=== PATIENT | male | born 1970 | race Caucasian/White ===

== ENCOUNTER → 2016-11-09 | Outpatient (CLI) | payer OTHER ==
--- NOTE | 2016-11-09 14:27 | PCVCIMAG ---
APPROVED REPORT Exam: Stress Echocardiogram Indication: CAD,ELEVATED COR CA+ SCORE, HTN,SHI Patient Location: Echo lab Stress Nurse: Essie Jean RN Status: routine Ht: 6 ft 1 in HR: 75 bpm BP: 150/100 mmHg Rhythm: NSR Medical History Medical History: HTN,ELEVATED COR CA+ SCORE Previous Cardiac Procedures: NONE Pretest Chest Pain Characteristics: No chest pain Exercise History: Physically active Procedure The patient underwent an Exercise Stress Test using the Jaun Protocol. Blood pressure, heart rate, and EKG were monitored. An Echocardiogram was performed by histopathology technician in four stages in quad fashion. At peak stress, four selected images were obtained and placed side by side with resting images for comparison. Stress Test Details Stress Test: Exercise stress testing was performed using a Jaun protocol. HR Resting HR: 75 bpmMax Heart Rate (APMHR): 174 bpm Max HR Achieved: 166 bpmTarget HR (85% APMHR): 147 bpm % of APMHR: 95 Recovery HR: 108 bpm HR response to stress: Normal HR response to stress BP Resting BP: 150/100 mmHg Max BP: 168/94 mmHg Recovery BP: 200/104 mmHg ECG Resting ECG: Sinus Rhythm Stress ECG: Sinus Rhythm ST Change: Non-ischemic Maximum ST Deviation: 1.0 mm Arrhythmia: Rare pvcs Recovery ECG: Sinus Rhythm Recovery ST Change: Non-ischemic Recovery ST Deviation: 0.35 mm Recovery Arrhythmia: None Clinical Reason for Termination: Maximal effort Stress Symptoms: none Exercise duration: 12 min 36 sec Highest Stage Achieved: Stage 5: 5.0 mph at 18% grade. Exercise capacity: 15.4 METs Overall Exercise Capacity for Age: Good Angina Score: None No complications. Stress ECG Conclusion The patient exercised according to the JAUN protocol for 10:36minutes, achieving a work level of Max. METS: 15.4. The resting heart rate of 75 bpm narciso to a maximal heart rate of 166 bpm. This value represents 95 % of the maximal, age-predicted heart rate. The resting blood pressure of 150/100 mmHg, narciso to a maximum blood pressure of 200/104 mmHg. The exercise test was stopped due to fatigue. Alanis Treadmill Score is 7.0 which is Low risk. Pre-Stress Echo The resting Echocardiogram showed normal left ventricular contractility with an estimated Ejection Fraction of about 55-60%. Normal wall motion in all segments on baseline images. Post-Stress Echo The stress Echocardiogram showed normal left ventricular contractility with an estimated Ejection Fraction of about 65-70%. Normal augmentation of wall motion in all segments on post stress images. Clinical No clinical or ECG evidence for ischemia. Conclusion Clinical Response: Non-ischemic Exercise Capacity: Superior Stress ECG Response: Non-ischemic Stress Echo Images: Non-ischemic No clinical, EKG or echocardiographic evidence for ischemia. No echocardiographic evidence for exercise induced ischemia. Normal stress echocardiogram with maximal exercise stress. <Conclusion> No clinical, EKG or echocardiographic evidence for ischemia. No echocardiographic evidence for exercise induced ischemia. Normal stress echocardiogram with maximal exercise stress.
== END | disposition home or self-care (01) ==
LOC: PCVCIMAG 11:26
PROVIDERS: ATTEND Internal Medicine Cardiovascular Disease
DX: I25.10 Atherosclerotic heart disease of native coronary artery without angina pectoris (principal); I49.3 Ventricular premature depolarization; R93.1 Abnormal findings on diagnostic imaging of heart and coronary circulation; I10 Essential (primary) hypertension; E78.5 Hyperlipidemia, unspecified
CPT/HCPCS: 93325; 93351